=== PATIENT | male | born 1985 | race African-American/Black ===

== ENCOUNTER 2020-08-17 00:38 | Emergency (ER) | payer OTHER ==
[2020-08-17] MEDS ORDERED: ACETAMINOPHEN 500 MG TABLET (FP) PO ONE (02:17)
[2020-08-17] MEDS ORDERED: ACETAMINOPHEN 325 MG TABLET (FP) ONE (02:19)
[2020-08-17 02:43] VITALS: BP 142/79; PULSE 84; TEMP 98.2; BMI 24.3
== END 2020-08-17 05:16 | disposition home or self-care (01) ==
LOC: JER 00:38
DX: S02.32XA Fracture of orbital floor, left side, initial encounter for closed fracture (principal); S00.83XA Contusion of other part of head, initial encounter; S80.912A Unspecified superficial injury of left knee, initial encounter
CPT/HCPCS: 70450-TC; 70486-TC; 71101-TC-LT-FY; 72125-TC; 72170-TC-FY; 73552-TC-LT-FY; 73560-TC-LT-FY; 73590-TC-LT-FY; 99285-25